=== PATIENT | female | born 1955 | race Two or more races ===

== ENCOUNTER 2024-04-20 09:48 | Emergency (ER) | payer OTHER ==
[~2024-04-20] VITALS: Ht 167.6 cm; Wt 70.3 kg
[2024-04-20] MEDS ORDERED: METFORMIN HCL500 M3 PO (10:05)
[2024-04-20] MEDS ORDERED: ROSUVASTATIN CA10 MG PO (10:06)
[2024-04-20] MEDS ORDERED: CANDESARTAN CILE8 MG PO (10:06)
== END 2024-04-20 15:47 | disposition home or self-care (01) ==
LOC: ER 09:50
DX: U07.1 COVID-19 (principal); E11.9 Type 2 diabetes mellitus without complications; Z79.84 Long term (current) use of oral hypoglycemic drugs